=== PATIENT | female | born 1995 | race Caucasian/White ===

== ENCOUNTER 2017-01-27 23:54 | Emergency (ER) | payer OTHER ==
[~2017-01-27] VITALS: Ht 160 cm; Wt 67.4 kg
[~2017-01-27 23:54] MED LIST: ARIP1TAB16 PO; LTHSR450 PO; NALT50TA16 PO; PRAZ1CAP10 PO; PRZ1 PO; QUET1TAB32 PO; TRAZ50TA35 PO; ZLF/100 PO
[2017-01-28 00:02] VITALS: TEMP 36.9; Ht 160 cm; Wt 67.4 kg
[2017-01-28] MEDS ORDERED: LIDOCAINE/EPINEPH/TETRACAINE 1 EA SYR EXT STA (00:24)
[2017-01-28] MEDS ORDERED: DTR/5 PO (00:28)
[2017-01-28] MEDS ORDERED: DOCU-94 PO (00:28)
[2017-01-28] MEDS ORDERED: DULO60CA44 PO (00:30)
[2017-01-28] MEDS ORDERED: DULO-24 PO (00:30)
[2017-01-28] MEDS ORDERED: ATV/1 PO (00:30)
[2017-01-28] MEDS ORDERED: LORA-741 PO (00:30)
[2017-01-28] MEDS ORDERED: QUET1TAB34 PO (00:31)
[2017-01-28] MEDS ORDERED: QUET1TAB32 PO (00:31)
[2017-01-28] MEDS ORDERED: TOPI100T20 PO (00:33)
[2017-01-28] MEDS ORDERED: LITH600C PO (00:33)
[2017-01-28] MEDS ORDERED: PRAZ5CAP2 PO (00:34)
[2017-01-28] MEDS ORDERED: BUPR-79 PO (00:34)
[2017-01-28] MEDS ORDERED: AMOX875T PO (01:45)
[2017-01-28] MEDS ORDERED: AMOXICIL/CLAVU 875MG HOME PACK PO ONE (01:45)
--- NOTE | 2017-01-28 01:46 | EMERGENCY ROOM VISIT NOTE ---
ED Visit Note First contact with patient: 00:07 CHIEF COMPLAINT: Facial laceration HISTORY OF PRESENT ILLNESS: This 21-year-old female patient presents emergency department ambulatory complaining of lacerations to the face. The patient reports that she was scratched in the face by her dog when they were playing. She rates her discomfort a 7/10. There was no loss of consciousness. No headache, nausea, or blurred vision. There is minimal bleeding. The patient's tetanus shot is up to date. REVIEW OF SYSTEMS: A 6 system review of systems was completed with positives and pertinent negatives listed in the HPI. ALLERGIES: No known drug allergies MEDICATIONS: See med list PMH: Depression SOCIAL HISTORY: The patient was recently released from [facility]. She lives locally with her family. PHYSICAL EXAM: Vital Signs: Reviewed Nurse's notes, vital signs stable. GENERAL : This is a 21-year-old female, in no acute distress, well-developed, well- nourished. NEURO: The patient is alert and oriented to person place and time. No focal neurological defects. EYES: Pupils are round, equal, and react to light. EOMI. EARS: No hemotympanum. NECK: Supple. No cervical spine tenderness. FACE: No facial bone tenderness or mandibular tenderness. The mouth can open fully. The teeth are well aligned. No loose or chipped teeth. SKIN: There is a 2.5 cm laceration inferior to the right eyebrow. There are multiple other small lacerations, including one in the left eyebrow which measures 0.5 cm and one lateral to the right eye which measures 0.5 cm. The edges gape apart with traction. There is no active bleeding and no foreign material in the wounds. There are no deep structures present. Capillary refill less than two seconds. Normal sensation to light and sharp touch. EMERGENCY DEPARTMENT COURSE: I examined the patient. Verbal consent was obtained to perform the procedure. LET gel was applied to the wound and left in place for greater than 30 minutes. Using sterile technique the wound was cleansed with Betadine. The area was sterilely draped. Once the patient was anesthetized, the wound was copiously irrigated under pressure with sterile saline. The wound was explored and was as described above. The laceration inferior to the eyebrow was repaired using 5 simple interrupted 6-0 nylon sutures with the wound edges being well approximated. The left eyebrow laceration was repaired using one simple interrupted 6-0 nylon suture. The small laceration lateral to the right eye was repaired using 2 simple attempted 6-0 nylon sutures. Dermabond was The applied to two superficial lacerations. patient tolerated the procedure well. Hemostasis was achieved. The area was cleaned with sterile saline and dressed with bacitracin ointment. The patient will be given Augmentin prophylactically. The patient was discharged home in good condition. DIAGNOSIS: Facial lacerations Problem List Medical Problems: (1) Bronchitis Status: Resolved (2) Nausea, vomiting, and diarrhea Status: Resolved Current/Historical Medications Scheduled Amoxicillin & Pot Clavulanate (Augmentin 875-125 mg), 1 TAB PO BID Bupropion (Wellbutrin Sr), 150 MG PO QAM Docusate Sodium (Colace), 100 MG PO HS Duloxetine HCl (Cymbalta), 20 MG PO QAM Duloxetine Hcl (Cymbalta), 60 MG PO HS [place] Carbonate ([place] Carbonate), 600 MG PO HS Lorazepam (Ativan), 0.5 MG PO DAILY @ 1200 Lorazepam (Ativan), 1 MG PO HS Oxybutynin Chloride (Ditropan), 5 MG PO HS Prazosin Hcl (Prazosin), 5 MG PO HS Quetiapine Fumarate (Seroquel), 50 MG PO DAILY @ 1200 Quetiapine Fumarate (Seroquel), 100 MG PO HS Topiramate (Topamax), 100 MG PO HS Allergies Coded Allergies: No Known Allergies (Unverified , NONE, 01/28/17) Vital Signs Date Time Temp Pulse Resp B/P (MAP) Pulse Ox O2 Delivery O2 Flow Rate FiO2 01/28/17 01:58 71 18 112/58 98 01/28/17 00:02 36.9 65 18 107/70 98 Room Air Medications Administered Medications (Trade) Dose Ordered Sig/Stephane Route Start Time Stop Time Status Last Admin Dose Admin Tetracaine/ Epinephrine/ Lidocaine (L.e.t. Gel 4%/ 1:100/0.5%) 1 ea UD STAT EXT 01/28/17 00:24 01/28/17 00:25 DC 01/28/17 00:29 1 EA Amoxicillin/ Clavulanate Potassium (Augmentin 875MG Home Pack) 1 homepack UD ONCE PO 01/28/17 01:45 01/28/17 01:46 DC 01/28/17 01:45 1 HOMEPACK Departure Information Impression Primary Impression: Laceration of face, multiple sites Dispostion Home / Self-Care Condition GOOD Prescriptions Amoxicillin & Pot Clavulanate (Augmentin 875-125 mg) 1 Tab Tab 1 TAB PO BID for 2 Days, #4 TAB Prov: Shama Prakash PA-C 01/28/17 Referrals Flaco Rider D.O. (PCP) Patient Instructions My [facility] Additional Instructions You were prescribed Augmentin to be taken twice daily for a total of 3 days. This is an antibiotic. All antibiotics have the potential to cause diarrhea. Stop this medication and contact a medical provider if you were to develop any significant adverse side effects including: wheezing, shortness of breath, passing out, vomiting, or a diffuse rash. Always take antibiotics as directed and COMPLETE the ENTIRE course regardless of the improvement of your symptoms. For pain control, you can use the following [id number] medicines (if >12 yo): - Regular strength (325mg/tab) Tylenol (acetaminophen) 2 tabs every 4-6 hours as needed. Do not exceed 12 tablets in a 24 hour period. Avoid taking more than 4 grams (4000 mg) of Tylenol per day. This includes any other sources of acetaminophen you may take on a regular basis. - Regular strength (200 mg/tab) Advil (ibuprofen) 1-2 tabs every 4-6 hours as needed. Do not exceed a dose of 3200 mg per day. You have received 8 sutures on your face. These sutures are NOT dissolvable and WILL need to be removed by a health care provider in [] days. You can return to the Emergency Department or contact your Primary Care Provider to have the sutures removed. Proper wound care is essential for adequate wound healing and infection prevention. You can shower and clean the wound with soap and water. Do not scour over the wound, pat dry with a towel. Do not submerse the wound (i.e. bathe or dish wash) until the sutures have been removed. You can use an antibiotic ointment with a dressing over the wound for the next 3-4 days. After this time you may leave the wound dry and open to the air. If crust develops over the wound you can use a Q-tip to apply a 1:1 peroxide:water solution to clean the wound. Look for signs of infection of the wound including: increased pain, swelling, foul discharge, streaking, or increased temperature. If any of these are noticed you should return to the Emergency Department for further assessment and treatment. As with any laceration you may have received nerve damage to the surrounding tissues. This damage may or may not be permanent. You should keep the area covered with sunscreen for the first 6 months to 1 year when at risk for exposure to help minimize scarring. You can also use scar reducing creams or Vitamin E oil to help minimize scarring. Return to the emergency department if your symptoms worsen despite treatment course outlined above.
[2017-01-28 01:58] VITALS: BP 112/58; PULSE 71; O2SAT 98
== END 2017-01-28 01:59 | disposition home or self-care (01) ==
LOC: C.EDB 23:55 → C.EDC 01-28 01:59
DX: S01.111A Laceration without foreign body of right eyelid and periocular area, initial encounter (principal); S01.112A Laceration without foreign body of left eyelid and periocular area, initial encounter; W54.8XXA Other contact with dog, initial encounter; F32.9 Major depressive disorder, single episode, unspecified

== ENCOUNTER 2022-11-22 21:13 | Inpatient (IN) ==
[2022-11-22 22:22] LABS: Acetaminophen < 3 ug/ml (10-30); Salicylate < 3.0 mg/dl (3.0-30)
[2022-11-22 22:23] LABS: Albumin Globulin Ratio 1.3 (0.9-2); Albumin Level 4.1 gm/dl (3.4-5.0); BUN Creatinine Ratio 15.2 (10-20); Bilirubin,Total 0.3 mg/dl (0.2-1.0); Calcium 9.6 mg/dl (8.6-10.3); Creatinine Clr Calc Pharmacy 151.9 ml/min; Est GFR (African American) 141.3 ml/min; Est GFR (Non-African American) 121.9 ml/min; Globulin 3.1 gm/dl (2.5-4.0); Potassium 3.9 mmol/L (3.5-5.1); Total Protein 7.2 gm/dl (6.0-8.3)
--- NOTE | 2022-11-22 22:36 | Emergency Department Note ---
Impression & Plan Suicidal thoughts, Mood disorder ED Provider Note Provider: Balwinder Howard MD DATE OF SERVICE: 11/22/2022 CHIEF COMPLAINT: Suicidal thought HISTORY OF PRESENT ILLNESS: Patient is a 27-year-old female history of suicide attempts and auditory hallucinations presenting here today requesting inpatient treatment. Patient with multiple hospital stays in the past last approximately 11 months ago. Has outpatient counselor. Discussed with them who referred to crisis this evening and then came here for inpatient treatment. States that her aunt last month and is having increased stress and now has been having thoughts when to harm her self. States she had thoughts to use a razor to cut herself to end her life. States she has chronic auditory hallucinations that have been present. Denies any visual hallucinations. Denies wanting to harm anyone else or homicidal intent. States medication compliance. Has been talking with mother. Denies actually attempting to harm her self at this point. PAST MEDICAL HISTORY: As noted above MEDICATIONS: Reviewed home medications SOCIAL HISTORY: Denies substance use issues. PHYSICAL EXAM: GENERAL: alert and oriented in no acute distress on stretcher with air pods in place listening to music Head: normocephalic and atraumatic EYES: No injection, discharge or icterus. NECK: Trachea midline. ENT: Mucous membranes pink and moist. LUNGS: Airway patent. No retractions or tachypnea SKIN: Acyanotic, warm, dry, without rashes EXTREMITIES: Without swelling, tenderness or deformity NEUROLOGICAL: No focal deficits. No aphasia. No facial droop or slurred speech. Normal strength and tone in the extremities. Sensation to gross touch normal. Ambulatory. Psych: Mildly flattened affect. Reports SI but denies HI. Reports auditory philippe lucinations but NOT respond external stimuli in the room on my interview Patient's laboratory studies reviewed. Differential includes Mood disorder, infection, hypoglycemia, electrolyte abnormalities, intracerebral event, toxicologic, trauma, neurologic, as well as other pathologies. IMPRESSION/MEDICAL DECISION MAKING: Patient with longstanding underlying psychiatric condition states compliance to medication. Increased rest related to aunts recent after a chandra with cancer. Reports now having some suicidal ideation coming and going along with hallucinations. Referred from crisis and wishes for voluntary inpatient treatment. Denies actually attempting to harm self at this juncture. Blood work sent and seen with case management. No severe abnormalities on blood work. Did take her evening medicines already. Not highly agitated or actively hallucinating in the room. Voluntary referrals made. Accepted for further care on a voluntary basis at 3 S. DIAGNOSIS: Suicidal thoughts, mood disorder DISPOSITION: 3 S. further inpatient psychiatric care Past Med/Surg History Medical History (Updated 11/23/22 @ 00:45 by Balwinder Howard M.D.) Acetaminophen overdose Acne vulgaris Borderline personality disorder Deliberate self-cutting Depression Drug-induced constipation Irregular periods/menstrual cycles Nausea, vomiting, and diarrhea PTSD (post-traumatic stress disorder) Schizoaffective disorder, depressive type Self-harming behavior Severe episode of recurrent major depressive disorder, with psychotic features Suicidal ideation Urinary incontinence Social History Smoking Status: Never smoker Preferred Language: Divehi Feels Safe at Home: Yes Gender Identity: Female Allergies Allergies Allergy/AdvReac Type Severity Reaction Status Date / Time latex AdvReac Rash Verified 06/27/20 11:07 Home Meds Home Medications Medication Instructions Recorded Confirmed desmopressin 0.2 mg tablet 0.6 mg PO HS 12/01/21 11/22/22 prazosin 5 mg capsule 5 mg PO HS 12/01/21 11/22/22 benztropine 1 mg tablet mg M 11/22/22 duloxetine 30 mg capsule,delayed mg PO DAILY 11/22/22 release fluphenazine HCl 2.5 mg tablet mg M 11/22/22 fluphenazine HCl 5 mg tablet mg HS 11/22/22 lithium carbonate 300 mg 600 mg PO HS 11/22/22 11/22/22 tablet,extended release lithium carbonate 450 mg mg PO [facility] 11/22/22 tablet,extended release prazosin 2 mg capsule mg 11/22/22 Results & Data (ED) Vital Signs Vital Signs - 24 hr 11/22/22 21:15 11/22/22 21:13 11/23/22 01:19 Temperature 36.9 C Temperature Source Oral Pulse Rate 104 H Respiratory Rate 18 18 Respiratory Effort / Characteristics Non-Labored Spontaneous Non-Labored Spontaneous Respiratory Depth Normal Respiratory Pattern Regular Blood Pressure 138/78 Blood Pressure Mean 98 Blood Pressure Position Sitting Pulse Oximetry 97 Oxygen Delivery Method Room Air Room Air Sepsis Recent Fever Within 48 Hours No Sepsis New/Unexplained Change in Mental Status No Sepsis Action Taken by Nursing No Action Required Laboratory Data 11/22/22 21:37 11/22/22 21:37 Lab Results 11/22/22 11/22/22 11/22/22 Range/Units 21:26 21:26 21:37 WBC 10.28 (4.8-10.8) K/ul RBC 4.83 (4.20-5.40) M/uL Hgb 13.4 (12.0-16.0) g/dl Hct 40.0 (37.0-47.0) % MCV 82.8 (80.0-100.0) fL MCH 27.7 (25.0-34.0) pg MCHC 33.5 (32.0-36.0) g/dL RDW Std Deviation 41.0 (36.4-46.3) fL RDW Coeff of Giselle 13.6 (11.5-14.5) % Plt Count 346 (130-400) K/uL MPV 10.6 (9.4-12.4) fL Immature Gran % (Auto) 0.6 % Neut % (Auto) 71.8 % Lymph % (Auto) 21.0 % [place] % (Auto) 5.7 % Eos % (Auto) 0.7 % Baso % (Auto) 0.2 % Neut # (Auto) 7.38 H (1.40-6.50) K/uL Lymph # (Auto) 2.16 (1.2-3.4) K/uL [place] # (Auto) 0.59 (0.11-0.59) K/uL Eos # (Auto) 0.07 (0-0.50) K/uL Baso # (Auto) 0.02 (0-0.2) K/uL Immature Gran # (Auto) 0.06 (0.01-0.20) K/uL Sodium (136-145) mmol/L Potassium (3.5-5.1) mmol/L Chloride (98-107) mmol/L Carbon Dioxide (21-32) mmol/L Anion Gap (3-11) BUN (6-23) mg/dl Creatinine (0.6-1.2) mg/dl Est Cr Clr Drug Dosing ml/min Est GFR ( Amer) ml/min Est GFR (Non-Af Amer) ml/min BUN/Creatinine Ratio (10-20) Glucose (70-99(Fasting)) mg/dl Calcium (8.6-10.3) mg/dl Total Bilirubin (0.2-1.0) mg/dl AST (13-39) U/L ALT (7-52) U/L Alkaline Phosphatase (34-104) U/L Total Protein (6.0-8.3) gm/dl Albumin (3.4-5.0) gm/dl Globulin (2.5-4.0) gm/dl Albumin/Globulin Ratio (0.9-2) TSH (0.300-4.500) uIu/ml Urine Color Yellow Urine Appearance Clear (Clear) Urine pH 7.5 (4.5-7.5) Ur Specific [place] 1.007 (1.000-1.030) Urine Protein Negative (Negative) Urine Glucose (UA) Negative (Negative) Urine Ketones Negative (Negative) Urine Blood Negative (Negative) Urine Nitrite Positive A (Negative) Urine Bilirubin Negative (Negative) Urine Urobilinogen Negative (Negative) Ur Leukocyte Esterase Negative (Negative) Urine WBC (Auto) 1-5 (0-5) /hpf Urine RBC (Auto) 0-4 (0-4) /hpf U Hyaline Cast (Auto) 1-5 (0-5) /lpf U Epithel Cells (Auto) 10-20 H (0-5) /lpf Urine Bacteria (Auto) Negative (Negative) Urine Test (Negative) Salicylates (3.0-30) mg/dl Urine Opiates Screen Neg (Neg) Ur Methadone, Qual Neg (Neg) Acetaminophen (10-30) ug/ml Urine Barbiturates Neg (Neg) Ur Phencyclidine (PCP) Neg (Neg) U Amphetamin/Meth Scrn Neg (Neg) MDMA (Ecstasy) Screen Neg (Neg) U Benzodiazepines Scrn Neg (Neg) [place] (0.6-1.2) mmol/L Ur Cocaine Metabolite Neg (Neg) U Marijuana (THC) Screen Neg (Neg) Ethyl Alcohol mg/dL (<10.0) mg/dl SARS-CoV-2, RNA, NAAT (NEGATIVE) 11/22/22 11/22/22 11/22/22 Range/Units 21:37 21:37 21:37 WBC (4.8-10.8) K/ul RBC (4.20-5.40) M/uL Hgb (12.0-16.0) g/dl Hct (37.0-47.0) % MCV (80.0-100.0) fL MCH (25.0-34.0) pg MCHC (32.0-36.0) g/dL RDW Std Deviation (36.4-46.3) fL RDW Coeff of Giselle (11.5-14.5) % Plt Count (130-400) K/uL MPV (9.4-12.4) fL Immature Gran % (Auto) % Neut % (Auto) % Lymph % (Auto) % [place] % (Auto) % Eos % (Auto) % Baso % (Auto) % Neut # (Auto) (1.40-6.50) K/uL Lymph # (Auto) (1.2-3.4) K/uL [place] # (Auto) (0.11-0.59) K/uL Eos # (Auto) (0-0.50) K/uL Baso # (Auto) (0-0.2) K/uL Immature Gran # (Auto) (0.01-0.20) K/uL Sodium 140 (136-145) mmol/L Potassium 3.9 (3.5-5.1) mmol/L Chloride 109 H (98-107) mmol/L Carbon Dioxide 24 (21-32) mmol/L Anion Gap 7 (3-11) BUN 10 (6-23) mg/dl Creatinine 0.66 (0.6-1.2) mg/dl Est Cr Clr Drug Dosing 151.9 ml/min Est GFR ( Amer) 141.3 ml/min Est GFR (Non-Af Amer) 121.9 ml/min BUN/Creatinine Ratio 15.2 (10-20) Glucose 96 (70-99(Fasting)) mg/dl Calcium 9.6 (8.6-10.3) mg/dl Total Bilirubin 0.3 (0.2-1.0) mg/dl AST 20 (13-39) U/L ALT 23 (7-52) U/L Alkaline Phosphatase 88 (34-104) U/L Total Protein 7.2 (6.0-8.3) gm/dl Albumin 4.1 (3.4-5.0) gm/dl Globulin 3.1 (2.5-4.0) gm/dl Albumin/Globulin Ratio 1.3 (0.9-2) TSH 1.675 (0.300-4.500) uIu/ml Urine Color Urine Appearance (Clear) Urine pH (4.5-7.5) Ur Specific [place] (1.000-1.030) Urine Protein (Negative) Urine Glucose (UA) (Negative) Urine Ketones (Negative) Urine Blood (Negative) Urine Nitrite (Negative) Urine Bilirubin (Negative) Urine Urobilinogen (Negative) Ur Leukocyte Esterase (Negative) Urine WBC (Auto) (0-5) /hpf Urine RBC (Auto) (0-4) /hpf U Hyaline Cast (Auto) (0-5) /lpf U Epithel Cells (Auto) (0-5) /lpf Urine Bacteria (Auto) (Negative) Urine Test (Negative) Salicylates < 3.0 L (3.0-30) mg/dl Urine Opiates Screen (Neg) Ur Methadone, Qual (Neg) Acetaminophen < 3 L (10-30) ug/ml Urine Barbiturates (Neg) Ur Phencyclidine (PCP) (Neg) U Amphetamin/Meth Scrn (Neg) MDMA (Ecstasy) Screen (Neg) U Benzodiazepines Scrn (Neg) [place] (0.6-1.2) mmol/L Ur Cocaine Metabolite (Neg) U Marijuana (THC) Screen (Neg) Ethyl Alcohol mg/dL (<10.0) mg/dl SARS-CoV-2, RNA, NAAT (NEGATIVE) 11/22/22 11/22/22 11/22/22 Range/Units 21:37 21:37 21:37 WBC (4.8-10.8) K/ul RBC (4.20-5.40) M/uL Hgb (12.0-16.0) g/dl Hct (37.0-47.0) % MCV (80.0-100.0) fL MCH (25.0-34.0) pg MCHC (32.0-36.0) g/dL RDW Std Deviation (36.4-46.3) fL RDW Coeff of Giselle (11.5-14.5) % Plt Count (130-400) K/uL MPV (9.4-12.4) fL Immature Gran % (Auto) % Neut % (Auto) % Lymph % (Auto) % [place] % (Auto) % Eos % (Auto) % Baso % (Auto) % Neut # (Auto) (1.40-6.50) K/uL Lymph # (Auto) (1.2-3.4) K/uL [place] # (Auto) (0.11-0.59) K/uL Eos # (Auto) (0-0.50) K/uL Baso # (Auto) (0-0.2) K/uL Immature Gran # (Auto) (0.01-0.20) K/uL Sodium (136-145) mmol/L Potassium (3.5-5.1) mmol/L Chloride (98-107) mmol/L Carbon Dioxide (21-32) mmol/L Anion Gap (3-11) BUN (6-23) mg/dl Creatinine (0.6-1.2) mg/dl Est Cr Clr Drug Dosing ml/min Est GFR ( Amer) ml/min Est GFR (Non-Af Amer) ml/min BUN/Creatinine Ratio (10-20) Glucose (70-99(Fasting)) mg/dl Calcium (8.6-10.3) mg/dl Total Bilirubin (0.2-1.0) mg/dl AST (13-39) U/L ALT (7-52) U/L Alkaline Phosphatase (34-104) U/L Total Protein (6.0-8.3) gm/dl Albumin (3.4-5.0) gm/dl Globulin (2.5-4.0) gm/dl Albumin/Globulin Ratio (0.9-2) TSH (0.300-4.500) uIu/ml Urine Color Urine Appearance (Clear) Urine pH (4.5-7.5) Ur Specific [place] (1.000-1.030) Urine Protein (Negative) Urine Glucose (UA) (Negative) Urine Ketones (Negative) Urine Blood (Negative) Urine Nitrite (Negative) Urine Bilirubin (Negative) Urine Urobilinogen (Negative) Ur Leukocyte Esterase (Negative) Urine WBC (Auto) (0-5) /hpf Urine RBC (Auto) (0-4) /hpf U Hyaline Cast (Auto) (0-5) /lpf U Epithel Cells (Auto) (0-5) /lpf Urine Bacteria (Auto) (Negative) Urine Test (Negative) Salicylates (3.0-30) mg/dl Urine Opiates Screen (Neg) Ur Methadone, Qual (Neg) Acetaminophen (10-30) ug/ml Urine Barbiturates (Neg) Ur Phencyclidine (PCP) (Neg) U Amphetamin/Meth Scrn (Neg) MDMA (Ecstasy) Screen (Neg) U Benzodiazepines Scrn (Neg) [place] 0.3 L (0.6-1.2) mmol/L Ur Cocaine Metabolite (Neg) U Marijuana (THC) Screen (Neg) Ethyl Alcohol mg/dL < 10.0 (<10.0) mg/dl SARS-CoV-2, RNA, NAAT NEGATIVE (NEGATIVE) 11/22/22 Range/Units 22:07 WBC (4.8-10.8) K/ul RBC (4.20-5.40) M/uL Hgb (12.0-16.0) g/dl Hct (37.0-47.0) % MCV (80.0-100.0) fL MCH (25.0-34.0) pg MCHC (32.0-36.0) g/dL RDW Std Deviation (36.4-46.3) fL RDW Coeff of Giselle (11.5-14.5) % Plt Count (130-400) K/uL MPV (9.4-12.4) fL Immature Gran % (Auto) % Neut % (Auto) % Lymph % (Auto) % [place] % (Auto) % Eos % (Auto) % Baso % (Auto) % Neut # (Auto) (1.40-6.50) K/uL Lymph # (Auto) (1.2-3.4) K/uL [place] # (Auto) (0.11-0.59) K/uL Eos # (Auto) (0-0.50) K/uL Baso # (Auto) (0-0.2) K/uL Immature Gran # (Auto) (0.01-0.20) K/uL Sodium (136-145) mmol/L Potassium (3.5-5.1) mmol/L Chloride (98-107) mmol/L Carbon Dioxide (21-32) mmol/L Anion Gap (3-11) BUN (6-23) mg/dl Creatinine (0.6-1.2) mg/dl Est Cr Clr Drug Dosing ml/min Est GFR ( Amer) ml/min Est GFR (Non-Af Amer) ml/min BUN/Creatinine Ratio (10-20) Glucose (70-99(Fasting)) mg/dl Calcium (8.6-10.3) mg/dl Total Bilirubin (0.2-1.0) mg/dl AST (13-39) U/L ALT (7-52) U/L Alkaline Phosphatase (34-104) U/L Total Protein (6.0-8.3) gm/dl Albumin (3.4-5.0) gm/dl Globulin (2.5-4.0) gm/dl Albumin/Globulin Ratio (0.9-2) TSH (0.300-4.500) uIu/ml Urine Color Urine Appearance (Clear) Urine pH (4.5-7.5) Ur Specific [place] (1.000-1.030) Urine Protein (Negative) Urine Glucose (UA) (Negative) Urine Ketones (Negative) Urine Blood (Negative) Urine Nitrite (Negative) Urine Bilirubin (Negative) Urine Urobilinogen (Negative) Ur Leukocyte Esterase (Negative) Urine WBC (Auto) (0-5) /hpf Urine RBC (Auto) (0-4) /hpf U Hyaline Cast (Auto) (0-5) /lpf U Epithel Cells (Auto) (0-5) /lpf Urine Bacteria (Auto) (Negative) Urine Test Negative (Negative) Salicylates (3.0-30) mg/dl Urine Opiates Screen (Neg) Ur Methadone, Qual (Neg) Acetaminophen (10-30) ug/ml Urine Barbiturates (Neg) Ur Phencyclidine (PCP) (Neg) U Amphetamin/Meth Scrn (Neg) MDMA (Ecstasy) Screen (Neg) U Benzodiazepines Scrn (Neg) [place] (0.6-1.2) mmol/L Ur Cocaine Metabolite (Neg) U Marijuana (THC) Screen (Neg) Ethyl Alcohol mg/dL (<10.0) mg/dl SARS-CoV-2, RNA, NAAT (NEGATIVE) Discharge Plan Visit Data Chief Complaint: Mental Health Evaluation Stated Complaint: MENTAL HEALTH EVAL ED Provider: Balwinder Howard Discharge Problem: Suicidal thoughts, Mood disorder Patient Disposition: Admitted As Inpatient Discharge Instructions Interventions: ED Discharge Assessment Last Done: 11/23/22 01:19 Forms Stand Alone Forms: My [facility], Suicide Prevention Resources Prescriptions Prescriptions: No Action desmopressin 0.2 mg Tablet 0.6 mg PO HS prazosin 5 mg Capsule 5 mg PO HS lithium carbonate 450 mg tablet extended release PO QAM lithium carbonate 300 mg tablet extended release 600 mg PO HS fluphenazine HCl 2.5 mg tablet QAM benztropine 1 mg tablet QAM fluphenazine HCl 5 mg tablet HS prazosin 2 mg capsule HS duloxetine 30 mg capsule,delayed release(DR/EC) PO DAILY Referrals Referrals: Kimberly Figueroa DO [Primary Care Provider] -
[2022-11-22 22:49] LABS: Basophils # (auto) 0.02 K/uL (0-0.2); Basophils % (auto) 0.2 %; Eosinophils # (auto) 0.07 K/uL (0-0.50); Eosinophils % (auto) 0.7 %; Hemoglobin 13.4 g/dl (12.0-16.0); Immature Granulocytes # (auto) 0.06 K/uL (0.01-0.20); Immature Granulocytes % (auto) 0.6 %; Lymphocytes # (auto) 2.16 K/uL (1.2-3.4); Mean Corpuscular Hemoglobin 27.7 pg (25.0-34.0); Mean Corpuscular Hgb Conc 33.5 g/dL (32.0-36.0); Mean Corpuscular Volume 82.8 fL (80.0-100.0); Mean Platelet Volume 10.6 fL (9.4-12.4); Monocytes # (auto) 0.59 K/uL (0.11-0.59); Monocytes % (auto) 5.7 %; Neutrophils # (auto) 7.38 K/uL (1.40-6.50); Neutrophils % (auto) 71.8 %; Platelet Count 346 K/uL (130-400); RDW Coefficient of Variation 13.6 % (11.5-14.5); Red Blood Count 4.83 M/uL (4.20-5.40); White Blood Count 10.28 K/ul (4.8-10.8)
[2022-11-22 22:53] LABS: Pregnancy Test, Urine Negative (Negative)
[2022-11-22 22:57] LABS: Appearance Urine Clear (Clear); Bacteria Urine Automated Negative (Negative); Bilirubin Urine Negative (Negative); Blood Urine Negative (Negative); Color Urine Yellow; Glucose Urine UA Negative (Negative); Ketones Urine Negative (Negative); Leukocyte Esterase Urine Negative (Negative); Nitrite Urine Positive (Negative); Protein Urine Negative (Negative); RBC Urine Automated 0-4 /hpf (0-4); Specific Gravity Urine 1.007 (1.000-1.030); Urobilinogen Urine Negative (Negative); pH Urine 7.5 (4.5-7.5)
[2022-11-22 23:15] LABS: Amphetamines+Metham, Urine Neg (Neg); Barbiturates, Urine Neg (Neg); Benzodiazepine, Urine Neg (Neg); Cocaine, Urine Neg (Neg); MDMA (Ecstacy), Urine Neg (Neg); Methadone, Urine Neg (Neg); Opiate, Urine Neg (Neg); Phencyclidine, Urine Neg (Neg)
[2022-11-23] MEDS ORDERED: ALUMINUM/MAGNESIUM SUSP 30 ML UDC PO PRN (00:33)
[2022-11-23] MEDS ORDERED: SODIUM CHLORIDE 0.65% NA SOLN 45 ML (OCEAN) PRN (00:33)
[2022-11-23] MEDS ORDERED: BISMUTH SUBSALICYLATE LIQD 236 ML PO PRN (00:33)
[2022-11-23] MEDS ORDERED: hydrOXYzine HCl 25 MG TAB PO PRN ×2 (00:33)
[2022-11-23] MEDS ORDERED: MAGNESIUM HYDROXIDE SUSP 30 ML UDC PO PRN (00:33)
[2022-11-23] MEDS ORDERED: LITHIUM CARBONATE 450 MG TABCR PO SCH (12:15)
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
[2022-11-23] MEDS: LITHIUM CARBONATE SLOW REL 300 MG TAB PO SCH ×2 (12:33→21:02)
[2022-11-23] MEDS: BENZTROPINE MESYLATE 1 MG TAB PO SCH (12:33)
[2022-11-23] MEDS: DULoxetine HCL 20 MG CAP PO SCH (12:34)
[2022-11-23] MEDS: ACETAMINOPHEN 325 MG TAB PO PRN (16:21)
[2022-11-23] MEDS: DESMOPRESSIN ACETATE 0.1 MG TAB PO SCH (21:02)
[2022-11-23] MEDS ORDERED: DOXEPIN HCL 50 MG CAPSULE PO SCH (22:00)
[2022-11-23] MEDS ORDERED: PRAZOSIN HCL 1 MG CAP PO SCH ×2 (22:00)
[2022-11-23] MEDS ORDERED: LITHIUM CARBONATE SLOW REL 300 MG TAB PO SCH (22:00)
[2022-11-24] MEDS: LITHIUM CARBONATE SLOW REL 300 MG TAB PO SCH (08:34)
[2022-11-24] MEDS: DULoxetine HCL 20 MG CAP PO SCH (08:34)
[2022-11-24] MEDS: BENZTROPINE MESYLATE 1 MG TAB PO SCH (08:34)
[2022-11-24 08:50] LABS: Chol HDL Ratio 5.5 (0-5)
[2022-11-24 09:32] LABS: Estimated Average Glucose 94 mg/dl; Hemoglobin A1C 4.9 % (4.5-5.6)
--- NOTE | 2022-11-24 09:39 | Psychiatric Progress Note ---
Date of Service November 24, 2022 Impression / Recommendations Impression 27 y/o F with long history of symptoms and multiple suicide attempts and previous psychiatric admissions. She appears at this point not to be severerely worse than baseline. 11/24/2022: Fasting labs show normal B12, folate, glycohemoglobin and total cholesterol but elevated triglycerides and VLDL. 25-OH Vitamin D level was very low at 12 ng/mL. Reviewed these results with pt. Has tolerated increase of lithium from 1,050 mg/day to 1,200 mg/day and rapid titration of duloxetine from 20 mg to (now) 40 mg/day with no evidence of adverse effects. Discussed further titration of lithium to target of 1,800 mg/day in hopes of achieving blood level in the therapeutic range of 0.8-1.2 mmol/L and of duloxetine to target of 60 mg/day. 11/23/2022: Discussed low lithium level, history of duloxetine (of which she used to take 40 mg daily - doesn't recall why it's not lower). Discussed need to adjust lithium dose, likelihood that duloxetine dose is subtherapeutic, possibility of increasing fluphenazine. (1) Schizoaffective disorder, depressive type: (2) PTSD (post-traumatic stress disorder): (3) Borderline personality disorder: (4) Vitamin D deficiency: (5) Suicidal thoughts: Plan 11/14/2022: * increase lithium to 600 mg QAM & 900 mg QHS, then to 900 mg BID starting tomorrow * increase duloxetine to 60 mg daily starting tomorrow * continue fluphenazine 2.5 mg QAM & 5 mg QHS - consider increase to 5 mg BID * continue prazosin 7 mg QHS * continue doxepin 100 mg QHS for sleep * start ergocalciferol 50,000 IU twice weekly for 8 weeks 11/23/2022: The patient was admitted to the [facility] ([facility] inpatient mental health unit) on q15 min checks (behavioral with suicide precautions) for safety. The patient will participate in group, recreational, and milieu therapies and will be offered additional individual and family sessions as clinically appropriate. * increase lithium to 600 mg BID * increase duloxetine to 40 mg daily * continue fluphenazine 2.5 mg QAM & 5 mg QHS - consider increase to 5 mg BID * continue prazosin 7 mg QHS * cautiously increase doxepin to 100 mg QHS for sleep * Hgb A1c, vitamin D, B12, folic acid levels, fasting lipid panel Inventory Assets Strengths: supportive relationships, has local supports,voluntary Needs: safety and stabilization, medication adjustment, additional coping skills Suicide Risk Level Suicide Risk Level: High-Moderate (q15 min suicide checks) Suicide Risk Level Comments: reports suicidal command auditory hallucinations, though these may not be much different from baseline Risk Factors Assessment Male: No Do You Have Access To A Gun?: No Mental Health Diagnoses: Yes Substance Use Disorders: No Previous Attempt: Yes Family History of Suicide: No Previous Psychiatric Hospitalization: Yes Hopelessness: No Protective Factors Assessment Employed: No Supportive Family: Yes Interval History Chief Complaint "Not as bad". Review of Systems Sleep Information Total Hours of Sleep: 6.25 Sleep Comments: early admit this AM Meal Information Percent Meal Consumed - Breakfast: 100 Percent Meal Consumed - Lunch: 100 Percent Meal Consumed - Dinner: 25 Subjective Subjective Patient was seen & assessed and interval progress reviewed with treatment team Physical Exam Psychiatric Orientation: alert, oriented to person, oriented to place, oriented to time and cooperative Apperance: appropriately dressed, appropriately groomed and appeared stated age Eye Contact: + fair eye contact Motor Behavior: steady gait and station and no abnormal motor movements Speech: normal rate/rhythm/volume of speech Affect: euthymic affect (incongruous) Mood: + depressed mood and + anxious mood Thought Process: linear/logical thought process Suicidal Thoughts: denies suicidal plan and denies suicidal intent; + reports suicidal thoughts Homicidal Thoughts: denies homicidal thoughts Hallucinations: + auditory hallucinations (suicidal commands) Cognition: recent memory grossly intact, remote memory grossly intact, attention grossly intact and language grossly intact Estimated Intelligence: average estimated intelligence Insight: + fair insight Judgment: good judgement Vital Signs (Past 24 Hours) Last Vital Signs Temp 36.9 C 11/24/22 06:35 Pulse 77 11/24/22 06:36 Resp 16 11/24/22 06:35 BP 96/70 L 11/24/22 06:36 Pulse Ox 97 11/22/22 21:15 O2 Del Method Room Air 11/23/22 01:19 Results & Data ([facility]) Laboratory Results Laboratory Results - last 24 hr 11/24/22 11/24/22 11/24/22 08:08 08:08 08:08 Estimat Average Glucose 94 Hemoglobin A1c 4.9 Triglycerides 198 H Cholesterol 187 LDL Cholesterol, Calc 113 VLDL Cholesterol, Calc 40 H HDL Cholesterol 34 Cholesterol/HDL Ratio 5.5 H Vitamin B12 389 25-OH Vitamin D Total 12.0 L Folate 9.40 Current Inpatient Medications Current Inpatient Medications: Current Inpatient Medications Acetaminophen (Acetaminophen 325 Mg Tab) 650 mg PO Q4H PRN PRN Reason: Headache or Minor Fever Stop: 12/23/22 00:32 Last Admin: 11/23/22 16:21 Dose: 650 mg Al Hydrox/Mg Hydrox/Simethicone (Aluminum/Magnesium Susp 30 Ml Udc) 30 ml PO Q4H PRN PRN Reason: GI Upset Stop: 12/23/22 00:32 Benztropine Mesylate (Benztropine Mesylate 1 Mg Tab) 1 mg PO QAM RAI Stop: 12/23/22 12:14 Last Admin: 11/24/22 08:34 Dose: 1 mg Bismuth Subsalicylate (Bismuth Subsalicylate Liqd 236 Ml) 15 ml PO PRN PRN PRN Reason: Loose Stool Stop: 12/23/22 00:32 Desmopressin Acetate (Desmopressin Acetate 0.1 Mg Tab) 0.6 mg PO HS RAI Stop: 12/23/22 21:59 Last Admin: 11/23/22 21:02 Dose: 0.6 mg Doxepin HCl (Doxepin Hcl 50 Mg Capsule) 50 mg PO HS RAI Stop: 12/23/22 21:59 Last Admin: 11/23/22 21:04 Dose: 50 mg Duloxetine HCl (Duloxetine Hcl 20 Mg Cap) 40 mg PO DAILY RAI Stop: 12/23/22 12:29 Last Admin: 11/24/22 08:34 Dose: 40 mg Fluphenazine HCl (Fluphenazine Hcl 2.5 Mg Tab) 2.5 mg PO QAM RAI Stop: 12/23/22 12:14 Last Admin: 11/24/22 08:34 Dose: 2.5 mg Fluphenazine HCl (Fluphenazine Hcl 2.5 Mg Tab) 5 mg PO HS RAI Stop: 12/23/22 21:59 Last Admin: 11/23/22 21:04 Dose: 5 mg Hydroxyzine HCl (Hydroxyzine Hcl 25 Mg Tab) 50 mg PO HSZ PRN PRN Reason: Insomnia Stop: 12/23/22 00:32 Hydroxyzine HCl (Hydroxyzine Hcl 25 Mg Tab) 25 mg PO Q4H PRN PRN Reason: Anxiety Stop: 12/23/22 00:32 [place] Carbonate ([place] Carbonate Slow Rel 300 Mg Tab) 600 mg PO BID RAI Stop: 12/23/22 12:29 Last Admin: 11/24/22 08:34 Dose: 600 mg Magnesium Hydroxide (Magnesium Hydroxide Susp 30 Ml Udc) 30 ml PO DAILY PRN PRN Reason: Constipation Stop: 12/23/22 00:32 Prazosin HCl (Prazosin Hcl 1 Mg Cap) 2 mg PO HS RAI Stop: 12/23/22 21:59 Last Admin: 11/23/22 21:04 Dose: 2 mg Prazosin HCl (Prazosin Hcl 1 Mg Cap) 5 mg PO HS RAI Stop: 12/23/22 21:59 Last Admin: 11/23/22 21:05 Dose: 5 mg Sodium Chloride (Sodium Chloride 0.65% Na Soln 45 Ml ([place])) 1 - 2 sprays NA PRN PRN PRN Reason: Nasal Dryness/Congestion Stop: 12/23/22 00:32 Mental Health & Subst Abuse Tx Psychiatrist Name of Psychiatrist: Jethro Everett Psychiatrist's Date Of Appointment With Psychiatric Provider: 12/14/22 Time of Appointment with Psychiatrist: 11:30 AM Psychiatric Appointment Comment: [address] [place] [address] Therapist Name of Therapist: [facility] Andry Nolen Therapist's Date of Therapist Appointment: 12/01/22 Time of Therapist Appointment: 4:00 PM Therapy Appointment Comment: [address] [place] [id number] Waterproofing Supervisor Name of Waterproofing Supervisor: [facility] Andry Reyes Phone Number for Waterproofing Supervisor: [phone] Case Management Appointment Comment: Please resume your normal schedule. Post Discharge Appointments Primary Care Physician Name Of Family Doctor/PCP: [facility] Time of Appointment with PCP: Please follow-up with your PCP as needed. Provider Appointment Comment: [address], [place] [address] Contact Information Discharge Discharge Address: [address], [place] [address]
[2022-11-24] MEDS: ACETAMINOPHEN 325 MG TAB PO PRN (10:02)
[2022-11-24] MEDS: DESMOPRESSIN ACETATE 0.1 MG TAB PO SCH (21:17)
[2022-11-24] MEDS: LITHIUM CARBONATE 450 MG TABCR PO SCH (21:17)
[2022-11-24] MEDS ORDERED: PRAZOSIN HCL 1 MG CAP PO SCH (22:00)
[2022-11-24] MEDS ORDERED: LITHIUM CARBONATE 300 MG TAB PO SCH (22:00)
[2022-11-24] MEDS ORDERED: DOXEPIN HCL 50 MG CAPSULE PO SCH ×3 (22:00)
--- NOTE | 2022-11-25 07:44 | Psychiatric Progress Note ---
Date of Service November 25, 2022 Impression / Recommendations Impression 27 y/o F with long history of symptoms and multiple suicide attempts and previous psychiatric admissions. She appears at this point not to be severerely worse than baseline. 11/24/2022: Fasting labs show normal B12, folate, glycohemoglobin and total cholesterol but elevated triglycerides and VLDL. 25-OH Vitamin D level was very low at 12 ng/mL. Reviewed these results with pt. Has tolerated increase of lithium from 1,050 mg/day to 1,200 mg/day and rapid titration of duloxetine from 20 mg to (now) 40 mg/day with no evidence of adverse effects. Discussed further titration of lithium to target of 1,800 mg/day in hopes of achieving blood level in the therapeutic range of 0.8-1.2 mmol/L and of duloxetine to target of 60 mg/day. 11/23/2022: Discussed low lithium level, history of duloxetine (of which she used to take 40 mg daily - doesn't recall why it's not lower). Discussed need to adjust lithium dose, likelihood that duloxetine dose is subtherapeutic, possibility of increasing fluphenazine. (1) Schizoaffective disorder, depressive type: (2) PTSD (post-traumatic stress disorder): (3) Borderline personality disorder: (4) Vitamin D deficiency: (5) Suicidal thoughts: Plan 11/14/2022: * increase lithium to 600 mg QAM & 900 mg QHS, then to 900 mg BID starting tomorrow * increase duloxetine to 60 mg daily starting tomorrow * continue fluphenazine 2.5 mg QAM & 5 mg QHS - consider increase to 5 mg BID * continue prazosin 7 mg QHS * continue doxepin 100 mg QHS for sleep * start ergocalciferol 50,000 IU twice weekly for 8 weeks 11/23/2022: The patient was admitted to the [facility] ([facility]) on q15 min checks (behavioral with suicide precautions) for safety. The patient will participate in group, recreational, and milieu therapies and will be offered additional individual and family sessions as clinically appropriate. * increase lithium to 600 mg BID * increase duloxetine to 40 mg daily * continue fluphenazine 2.5 mg QAM & 5 mg QHS - consider increase to 5 mg BID * continue prazosin 7 mg QHS * cautiously increase doxepin to 100 mg QHS for sleep * Hgb A1c, vitamin D, B12, folic acid levels, fasting lipid panel Inventory Assets Strengths: supportive relationships, has local supports,voluntary Needs: safety and stabilization, medication adjustment, additional coping skills Suicide Risk Level Suicide Risk Level: High-Moderate (q15 min suicide checks) Suicide Risk Level Comments: reports suicidal command auditory hallucinations, though these may not be much different from baseline Risk Factors Assessment Male: No Do You Have Access To A Gun?: No Mental Health Diagnoses: Yes Substance Use Disorders: No Previous Attempt: Yes Family History of Suicide: No Previous Psychiatric Hospitalization: Yes Hopelessness: No Protective Factors Assessment Employed: No Supportive Family: Yes Interval History Chief Complaint "[]". Review of Systems Sleep Information Total Hours of Sleep: 6.25 Sleep Comments: early admit this AM Meal Information Percent Meal Consumed - Breakfast: 100 Percent Meal Consumed - Lunch: 60 Percent Meal Consumed - Dinner: 100 Subjective Subjective Patient was seen & assessed and interval progress reviewed with [treatment team] [nursing and social work] Physical Exam Psychiatric Orientation: alert, oriented to person, oriented to place, oriented to time and cooperative Apperance: appropriately dressed, appropriately groomed and appeared stated age Eye Contact: + fair eye contact Motor Behavior: steady gait and station and no abnormal motor movements Speech: normal rate/rhythm/volume of speech Affect: euthymic affect (incongruous) Mood: + depressed mood and + anxious mood Thought Process: linear/logical thought process Suicidal Thoughts: denies suicidal plan and denies suicidal intent; + reports suicidal thoughts Homicidal Thoughts: denies homicidal thoughts Hallucinations: + auditory hallucinations (suicidal commands) Cognition: recent memory grossly intact, remote memory grossly intact, attention grossly intact and language grossly intact Estimated Intelligence: average estimated intelligence Insight: + fair insight Judgment: good judgement Vital Signs (Past 24 Hours) Last Vital Signs Temp 36.5 C 11/25/22 06:00 Pulse 83 11/25/22 06:46 Resp 18 11/25/22 06:00 BP 101/68 11/25/22 06:46 Pulse Ox 97 11/22/22 21:15 O2 Del Method Room Air 11/23/22 01:19 Results & Data (U) Laboratory Results Laboratory Results - last 24 hr 11/24/22 11/24/22 11/24/22 08:08 08:08 08:08 Estimat Average Glucose 94 Hemoglobin A1c 4.9 Triglycerides 198 H Cholesterol 187 LDL Cholesterol, Calc 113 VLDL Cholesterol, Calc 40 H HDL Cholesterol 34 Cholesterol/HDL Ratio 5.5 H Vitamin B12 389 25-OH Vitamin D Total 12.0 L Folate 9.40 Current Inpatient Medications Current Inpatient Medications: Current Inpatient Medications Acetaminophen (Acetaminophen 325 Mg Tab) 650 mg PO Q4H PRN PRN Reason: Headache or Minor Fever Stop: 12/23/22 00:32 Last Admin: 11/24/22 10:02 Dose: 650 mg Al Hydrox/Mg Hydrox/Simethicone (Aluminum/Magnesium Susp 30 Ml Udc) 30 ml PO Q4H PRN PRN Reason: GI Upset Stop: 12/23/22 00:32 Benztropine Mesylate (Benztropine Mesylate 1 Mg Tab) 1 mg PO QAM RAI Stop: 12/23/22 12:14 Last Admin: 11/24/22 08:34 Dose: 1 mg Bismuth Subsalicylate (Bismuth Subsalicylate Liqd 236 Ml) 15 ml PO PRN PRN PRN Reason: Loose Stool Stop: 12/23/22 00:32 Desmopressin Acetate (Desmopressin Acetate 0.1 Mg Tab) 0.6 mg PO HS RAI Stop: 12/23/22 21:59 Last Admin: 11/24/22 21:17 Dose: 0.6 mg Doxepin HCl (Doxepin Hcl 50 Mg Capsule) 100 mg PO HS RAI Stop: 12/24/22 21:59 Last Admin: 11/24/22 21:17 Dose: 100 mg Duloxetine HCl (Duloxetine Hcl 60 Mg Cap) 60 mg PO DAILY RAI Stop: 12/25/22 08:59 Fluphenazine HCl (Fluphenazine Hcl 2.5 Mg Tab) 2.5 mg PO QAM RAI Stop: 12/23/22 12:14 Last Admin: 11/24/22 08:34 Dose: 2.5 mg Fluphenazine HCl (Fluphenazine Hcl 2.5 Mg Tab) 5 mg PO HS RAI Stop: 12/23/22 21:59 Last Admin: 11/24/22 21:16 Dose: 5 mg Hydroxyzine HCl (Hydroxyzine Hcl 25 Mg Tab) 50 mg PO HSZ PRN PRN Reason: Insomnia Stop: 12/23/22 00:32 Hydroxyzine HCl (Hydroxyzine Hcl 25 Mg Tab) 25 mg PO Q4H PRN PRN Reason: Anxiety Stop: 12/23/22 00:32 [place] Carbonate ([place] Carbonate 450 Mg Tabcr) 900 mg PO BID RAI Stop: 12/24/22 20:59 Last Admin: 11/24/22 21:17 Dose: 900 mg Magnesium Hydroxide (Magnesium Hydroxide Susp 30 Ml Udc) 30 ml PO DAILY PRN PRN Reason: Constipation Stop: 12/23/22 00:32 Prazosin HCl (Prazosin Hcl 1 Mg Cap) 7 mg PO HS RAI Stop: 12/23/22 21:59 Last Admin: 11/24/22 21:18 Dose: 7 mg Sodium Chloride (Sodium Chloride 0.65% Na Soln 45 Ml ([place])) 1 - 2 sprays NA PRN PRN PRN Reason: Nasal Dryness/Congestion Stop: 12/23/22 00:32 Mental Health & Subst Abuse Tx Psychiatrist Name of Psychiatrist: Jethro Everett Psychiatrist's Date Of Appointment With Psychiatric Provider: 12/14/22 Time of Appointment with Psychiatrist: 11:30 AM Psychiatric Appointment Comment: [address] [facility], [place] [address] Therapist Name of Therapist: [facility] Andry Nolen Therapist's Date of Therapist Appointment: 12/01/22 Time of Therapist Appointment: 4:00 PM Therapy Appointment Comment: [place] [address] [facility] [place] [facility] [facility] [place] Phone Number for [facility]illing: [phone] Case Management Appointment Comment: Please resume your normal schedule. Post Discharge Appointments Primary Care Physician Name Of Family Doctor/PCP: [facility] Time of Appointment with PCP: Please follow-up with your PCP as needed. Provider Appointment Comment: [address], [place] [address] Contact Information Discharge Discharge Address: [facility] [address], [place] [address]
[2022-11-25] MEDS: BENZTROPINE MESYLATE 1 MG TAB PO SCH (08:54)
[2022-11-25] MEDS: LITHIUM CARBONATE 450 MG TABCR PO SCH (08:55)
[2022-11-25] MEDS ORDERED: DULoxetine HCL 60 MG CAP PO SCH (09:00)
[2022-11-25] MEDS ORDERED: LITHIUM CARBONATE SLOW REL 300 MG TAB PO SCH (09:00)
[2022-11-25] MEDS ORDERED: ERGOCALCIFEROL 50,000 UNITS 1250 MCG CAP PO SCH (11:30)
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
== END 2022-11-25 11:30 | disposition home or self-care (01) | DRG 885 ==
LOC: ED 21:13 → 3S 11-23 00:33